=== PATIENT | female | born 1965 | race Caucasian/White ===

== ENCOUNTER 2019-05-01 16:36 | Emergency (ER) | payer OTHER ==
[~2019-05-01] VITALS: Ht 165.1 cm; Wt 63.0 kg
[2019-05-01 16:46] VITALS: Ht 165.1 cm; Wt 63.0 kg
[2019-05-01 17:46] VITALS: BP 200/115
== END 2019-05-01 17:59 | disposition home or self-care (01) ==
LOC: ED 16:36
DX: L03.317 Cellulitis of buttock (principal); I10 Essential (primary) hypertension; Z90.710 Acquired absence of both cervix and uterus
CPT/HCPCS: J1885